=== PATIENT | female | born 1960 | race Caucasian/White ===

== ENCOUNTER 2016-11-16 06:10 | Day surgery (SDC) | payer BC ==
[~2016-11-16 06:10] MED LIST: CULTURELLE1 EAC1 PO; FLAGYL500 M1 PO; IBUPROFEN200 M2 PO; KEFLEX500 M4 PO; LEVAQUIN500 M1 PO; MILK OF MAGNESIA PO; NO MEDICATION; SENOKOT-S TABL1 EACH PO; TYLENOL EXTRA500 M1 PO; TYLENOL WITH C1 EACH PO
[2016-11-16 06:57] LABS: BASO ABSOLUTE COUNT 0.1 tho/cmm (0.0-0.2); EOS % 5.5 % (0-7); EOSINOPHIL ABSOLUTE COUNT 0.5 tho/cmm (0.0-0.7); HCT-HEMATOCRIT 41.5 % (34.0-49.0); HGB-HEMOGLOBIN 13.6 gm/dl (12.0-15.5); IMMATURE GRANULOCYTES ABSOLUTE 0.01 tho/cmm (0-0.03); IMMATURE GRANULOCYTES PERCENT 0.1 % (0-0.3); LYMPH % 36.6 % (20-45); MCH (MEAN CORPUSCULAR HGB) 29.1 pg (28.0-32.0); MCHC MEAN CORPUSCULAR HGB CONC 32.8 % (32.0-36.0); MCV (MEAN CELL VOLUME) 88.9 fl (82.0-96.0); MEAN PLATELET VOLUME 9.5 cmc (9.4-12.4); MONO % 10.4 % (0-12); MONOCYTE ABSOLUTE COUNT 0.9 tho/cmm (0.0-1.2); NEUTROPHIL ABSOLUTE COUNT 3.9 tho/cmm (1.6-8.0); NEUTROPHIL-AUTOMATED 3.9 tho/cmm (1.6-8.0); NEUTROPHILS % 46.4 % (40-80); PLATELET COUNT 303 tho/cmm (150-450); RED BLOOD COUNT 4.67 mil/cmm (4.00-5.20); RED CELL DISTRIBUTION WIDTH 13.4 % (12.4-16.4); WHITE BLOOD COUNT 8.3 tho/cmm (4.0-10.0)
[2016-11-16 07:04] LABS: INR 0.9 INR (0.9-1.1); PROTHROMBIN TIME 10.7 SECONDS (9.0-13.6)
[2016-11-16 07:14] LABS: ALB/GLOB RATIO 0.9 (0.8-2.0); ALBUMIN 3.4 g/dl (3.5-5.0); ALKALINE PHOSPHATASE 92 U/L (33-138); ALT/SGPT 26 U/L (12-78); AMYLASE 67 U/L (20-90); ANION GAP 12 mmol/L (0-20); AST/SGOT 29 U/L (10-40); BILIRUBIN,DIRECT 0.2 mg/dl (0.0-0.3); BILIRUBIN,INDIRECT 1.2 mg/dL (0.0-1.0); BILIRUBIN,TOTAL 1.4 mg/dl (0-1.5); BLOOD UREA NITROGEN 16 mg/dl (6-24); CALCIUM 8.7 mg/dl (8.5-10.5); CARBON DIOXIDE-VENOUS 31 mmol/L (22-32); CHLORIDE 107 mmol/l (96-110); CREATININE 0.87 mg/dl (0.50-1.10); GGT - GAMMA GT 39 U/L (5-85); GLUCOSE 94 mg/dL (70-110); POTASSIUM 4.5 mmol/L (3.7-5.1); SODIUM 145 mmol/L (135-145); eGFR VALUE FOR BLACK 86 mL/Min
== END 2016-11-16 10:45 ==
LOC: ENDOS 06:10 → SHSB 06:11 → PACU 08:57 → SHSB 09:29
PROVIDERS: Specialist
PROC: 0F798DZ Dilation of Common Bile Duct with Intraluminal Device, Via Natural or Artificial Opening Endoscopic (ICD-10-PCS; principal; 2016-11-16)
DX: K91.89 Other postprocedural complications and disorders of digestive system (principal); E74.10 Disorder of fructose metabolism, unspecified; Z79.2 Long term (current) use of antibiotics; Z90.49 Acquired absence of other specified parts of digestive tract; Z90.710 Acquired absence of both cervix and uterus; Z98.890 Other specified postprocedural states
CPT/HCPCS: C1726; C1769; C2625; J1956; J7030; Q9966